=== PATIENT | male | born 1955 | race Caucasian/White ===

== ENCOUNTER 2019-07-27 07:53 | Emergency (ER) | payer BC ==
[~2019-07-27] VITALS: Ht 182.9 cm; Wt 109.1 kg
[2019-07-27 07:58] VITALS: BP 163/92; PULSE 66
[2019-07-27] MEDS ORDERED: MEDROL 4MG DOSPA4 MG PO (08:22)
[2019-07-27 09:50] VITALS: TEMP 97.4
== END 2019-07-27 08:53 | disposition home or self-care (01) ==
LOC: COL.ER 07:53
DX: S80.862A Insect bite (nonvenomous), left lower leg, initial encounter (principal); S80.861A Insect bite (nonvenomous), right lower leg, initial encounter; E11.9 Type 2 diabetes mellitus without complications; I10 Essential (primary) hypertension; W57.XXXA Bitten or stung by nonvenomous insect and other nonvenomous arthropods, initial encounter
CPT/HCPCS: J1040